=== PATIENT | female | born 1985 | race Two or more races ===

== ENCOUNTER 2023-10-21 04:41 | Inpatient (IN) | payer OTHER ==
[~2023-10-21] VITALS: Ht 162.6 cm; Wt 2.7 kg
[~2023-10-21 04:41] MED LIST: BENADRYL25 MG PO; MEDROL4 MG PO
[2023-10-21] MEDS ORDERED: INTEGRA PLUS C1 EACH PO (06:07)
[2023-10-21] MEDS ORDERED: NIFEDIPINE ER30 MG PO (06:08)
[2023-10-21] MEDS ORDERED: RINGERS SOLUTION,LACTATED 1,000 ML IV SCH (07:45)
[2023-10-21] MEDS ORDERED: CEFAZOLIN SODIUM 1,000 MG VIAL IV SCH ×2 (07:45→18:00)
[2023-10-21] MEDS ORDERED: OXYTOCIN 10 UNITS/ML VIAL ONE (12:43)
[2023-10-21] MEDS ORDERED: ERYTHROMYCIN BASE 1 GM TUBE OP ONE ×2 (12:44→17:45)
[2023-10-21] MEDS ORDERED: CARBOPROST TROMETHAMINE 250 MCG/ML AMPUL IM ONE ×2 (12:45→17:45)
[2023-10-21] MEDS ORDERED: MEPERIDINE HCL/PF 50 MG,MEPERIDINE HCL/PF 25 MG IM SCH (15:00)
[2023-10-21] MEDS ORDERED: OXYTOCIN 10 UNITS/ML VIAL IV ONE (17:45)
[2023-10-21] MEDS ORDERED: CEFAZOLIN SODIUM 1,000 MG VIAL ONE (17:45)
[2023-10-21] MEDS ORDERED: PROMETHAZINE HCL 50 MG/ML AMPUL IV SCH (18:00)
[2023-10-22] MEDS ORDERED: OxyCODONE HCL/APAP UD (PERCOCET) PO PRN (00:45)
[2023-10-22] MEDS ORDERED: ACETAMINOPHEN 500 MG GEL..CAP PO PRN (00:45)
[2023-10-22 08:37] LABS: HEMATOCRIT 31.3 % (36.0-45.00); HEMOGLOBIN 10.8 g/dL (12.0-15.00); MEAN CORPUSCULAR HEMOGLOBIN 31.6 pg (27.00-32.0); MEAN CORPUSCULAR HGB CONC 34.7 g/dl (32.0-36.0); PLATELET COUNT 234 K/uL (150-450); RED BLOOD COUNT 3.43 M/uL (4.00-6.00); RED CELL DISTRIBUTION WIDTH 14.8 % (11.5-14.5)
== END 2023-10-23 11:47 | disposition home or self-care (01) | DRG 788 ==
LOC: O/R 04:41 → LDR 04:41 → O/R 13:06 → OB/GYN 15:02
PROVIDERS: ADMIT Specialist; ATTEND Specialist
PROC: 4A1HXCZ Monitoring of Products of Conception, Cardiac Rate, External Approach (ICD-10-PCS; 2023-10-21)
PROC: 10D00Z1 Extraction of Products of Conception, Low, Open Approach (ICD-10-PCS; principal; 2023-10-21 14:00)
DX: O32.2XX0 Maternal care for transverse and oblique lie, not applicable or unspecified (principal); O34.13 Maternal care for benign tumor of corpus uteri, third trimester; D25.1 Intramural leiomyoma of uterus; D25.2 Subserosal leiomyoma of uterus; Z3A.37 37 weeks gestation of pregnancy; Z37.0 Single live birth; Z20.822 Contact with and (suspected) exposure to COVID-19